=== PATIENT | male | born 1990 | race Caucasian/White ===

== ENCOUNTER 2018-09-15 10:35 | Emergency (ER) | payer OTHER ==
[2018-09-15] MEDS ORDERED: Metoclopramide HCl 10 MG/2 ML VIAL ONE (11:56)
[2018-09-15] MEDS ORDERED: Ketorolac Tromethamine 30 MG/ML VIAL ONE (11:56)
--- NOTE | 2018-09-15 12:19 | CT ---
CT of abdomen and pelvis: 09/15/2018 COMPARISON: None HISTORY: Left flank pain, hematuria, fever TECHNIQUE: Axial CT imaging at 5 mm intervals from lung bases through pubic symphysis without contras t. Coronal reformatted imaging obtained. FINDINGS: Lack of contrast media limits assessment of the viscera, bowel, vascular structures, and fo r lymphadenopathy. Partially imaged focal pulmonary parenchymal opacity in the lingula noted, which may signify volume l oss or lingular pneumonia. Limited assessment of the liver, gallbladder, pancreas, adrenal glands, and kidneys appears unremarkable. No hydronephrosis or nephrolithiasis noted on either side. The spleen is enlarged, measuring 15 cm AP dimension and 10 cm transverse dimension. There is no evidence for obstructive uropathy on either side. Limited assessment of the bowel without contrast media demonstrates no evidence for obstruction, infl ammatory change, or appendicitis. Review of the osseous structures demonstrates no worrisome lytic or blastic bone lesion. IMPRESSION: Splenomegaly. Partially imaged focal consolidation within the lingula,, which may signify pneumonia.
[2018-09-15 12:24] LABS: ALT (SGPT) 21 U/L (8-55); AST (SGOT) 17 U/L (5-34); Albumin 4.1 g/dL (3.5-5.0); Alkaline Phosphatase 60 U/L (40-150); Anion Gap 14 mmol/L (10-20); BUN (Urea Nitrogen) 11 mg/dL (8.9-20.6); Bilirubin, Total 1.1 mg/dL (0.2-1.2); CK (CPK) 99 U/L (30-200); Calc. Creatinine Clearance 0 mL/min (70-130); Calcium 9.1 mg/dL (7.8-10.44); Carbon Dioxide 24 mmol/L (22-29); Chloride 101 mmol/L (98-107); Estimated GFR-MDRD Greater than 90; Globulin 3.3 g/dL (2.4-3.5); Glucose 102 mg/dL (70-105); Potassium 3.6 mmol/L (3.5-5.1); Protein, Total 7.4 g/dL (6.0-8.3); Sodium 135 mmol/L (136-145)
[2018-09-15 12:26] LABS: Band 2 % (5-11); Eosinophils 1 % (0-10); Hemoglobin 14.5 g/dL (14.0-18.0); Lymphocytes 12 % (21-51); MDiff Complete? YES; Mean Corpuscular HGB CONC 34.4 g/dL (32.0-36.0); Mean Corpuscular Hemoglobin 30.1 pg (27.0-31.0); Mean Corpuscular Volume 87.6 fL (78.0-98.0); Mean Platelet Volume 7.2 fL (7.4-10.4); Monocytes 9 % (0-10); Neutrophil 75 % (42-75); Platelet Count 167 thou/uL (130-400); Platelet Morphology Comment Appears Adequate; RBC Distribution Width 11.2 % (11.5-14.5); RBC Morphology Normal; Red Blood Cell (RBC) Count 4.81 mill/uL (4.70-6.10); White Blood Cell (WBC) Count 9.2 thou/uL (4.8-10.8)
[2018-09-15] MEDS ORDERED: Sodium Chloride 0.9% 100 ML ONE (12:28)
[2018-09-15] MEDS ORDERED: Azithromycin 250 MG TAB ONE (12:28)
[2018-09-15] MEDS ORDERED: cefTRIAXone\\ROCEPHIN 2 GM VIAL ONE (12:28)
== END 2018-09-15 13:14 | disposition home or self-care (01) ==
LOC: SCSER 10:35
DX: J18.9 Pneumonia, unspecified organism (principal)
CPT/HCPCS: 74176; 82550; 96365; 96368; 96375; J0696; J1885; J2765; J3490